=== PATIENT | male | born 1985 ===

== ENCOUNTER → 2017-03-13 | Outpatient (REF) | payer OTHER ==
[2017-03-13 14:25] LABS: SPERM ABNORMAL FORMS OTHER (SPECIFIY)
[2017-03-13 14:26] LABS: % NORMAL FORMS 19 % (>=4); IMMOTILITY 24 %; NON PROGRESSIVE MOTILITY (c) 18 %; PROGRESSIVE MOTILITY (a) 58 % (>=32); SPERM# 54.6 M/Ejac (33-46); TOTAL FUNCTIONAL 11.7 M/Ejac.; TOTAL MOTILITY 76 % (>=40); TOTAL PROGRESSIVE SPERM 31.5 M/Ejac.
== END ==
LOC: M LAB REF 13:31
PROVIDERS: ATTEND Student in an Organized Health Care Education/Training Program
DX: N46.8 Other male infertility (principal)